=== PATIENT | female | born 1940 | race Caucasian/White ===

== ENCOUNTER 2020-08-24 06:14 | Day surgery (SDC) | payer OTHER ==
[~2020-08-24 06:14] MED LIST: ADVIL200 M1 PO; ASPIRIN EC81 MG PO; CIPRO500 MG PO; COD LIVER OIL1 EACH PO; COZAAR50 MG PO; ESTRACE42.5 GM TOP; FENOFIBRATE54 MG PO; LIPITOR40 M1 PO; LOVAZA1 GM PO; PANTOPRAZOLE SO20 MG PO; SYNTHROID25 MCG PO; TOPROL XL50 MG PO; VALSARTAN160 MG PO; VITAMIN B COMP1 EACH PO; VITAMIN D-40010 MCG PO; VITAMIN E400 UNI2 PO
[2020-08-25 04:30] LABS: BASOPHIL 0.3 % (0-2); EOSINOPHIL 0.9 % (0-7); HCT 28.2 % (37.0-47.0); HGB 8.7 g/dl (12.5-16.0); LYMPHOCYTE 16.7 % (15-48); MCH 31.4 pg (25.0-31.0); MCHC 30.9 g/dL (32.0-36.0); MCV 101.8 fL (78.0-100.0); MONOCYTE 13.2 % (0-12); NEUTROPHIL 68.7 % (41-80); NRBC 0; PLT 243 K/uL (150-400); RBC 2.77 M/uL (4.20-5.40); RDW 14.3 % (11.5-14.0); WBC 8.6 K/uL (4.0-10.5)
[2020-08-25 04:42] LABS: BUN/CREAT RATIO (CALC) 15.3 RATIO; CREATININE 0.98 mg/dL (0.51-0.95); POTASSIUM 4.3 mmol/L (3.5-5.1)
[2020-08-25] MEDS ORDERED: XARELTO10 MG PO (09:19)
[2020-08-25] MEDS ORDERED: FEOSOL325 MG PO (09:19)
[2020-08-25] MEDS ORDERED: OXYCODONE-ACET1 EAC1 PO (09:19)
[2020-08-25] MEDS ORDERED: ZOFRAN4 M1 PO (09:19)
== END 2020-08-25 13:04 | disposition home health service (06) ==
LOC: FAS 06:14 → FMS 10:44
PROVIDERS: Legal Medicine
PROC: 0SRC0L9 Replacement of Right Knee Joint with Medial Unicondylar Synthetic Substitute, Cemented, Open Approach (ICD-10-PCS; principal; 2020-08-24 08:30)
DX: M17.11 Unilateral primary osteoarthritis, right knee (principal); M21.169 Varus deformity, not elsewhere classified, unspecified knee; K21.9 Gastro-esophageal reflux disease without esophagitis; I10 Essential (primary) hypertension; E03.9 Hypothyroidism, unspecified; R11.2 Nausea with vomiting, unspecified; Z88.1 Allergy status to other antibiotic agents; Z88.2 Allergy status to sulfonamides; Z88.8 Allergy status to other drugs, medicaments and biological substances; Z98.51 Tubal ligation status; Z90.710 Acquired absence of both cervix and uterus; Z96.641 Presence of right artificial hip joint
CPT/HCPCS: 36415; 73560; 80048; 85025; 86850; 86900; 86901; 94010; 94760; 94762; 97110; 97162; 97166; 97530-GP; 97535; C1713; C1776; J0171; J0697; J1100; J1170; J1885; J2250; J2270; J2405; J2704; J2795; J3010; J7120

== ENCOUNTER 2021-08-09 06:32 | Day surgery (SDC) | payer OTHER ==
[~2021-08-09] VITALS: Ht 163 cm; Wt 72.0 kg
[~2021-08-09 06:32] MED LIST changes: +FEOSOL325 MG PO; +HYDROCHLOROTH12.5 MG PO; +IBUPROFEN800 MG PO; +LEVAQUIN500 MG PO; +OXYCODONE-ACET1 EAC1 PO; +XARELTO10 MG PO; +ZOFRAN4 M1 PO
--- NOTE | 2021-08-09 13:09 | NUR ---
PT HAD A RRTSR THIS DAY. PT WILL D/C HOME WITH NO NEEDS.
[2021-08-10 07:23] LABS: BASOPHIL 0.3 % (0-2); EOSINOPHIL 1.3 % (0-7); HCT 29.4 % (37.0-47.0); HGB 9.2 g/dl (12.5-16.0); LYMPHOCYTE 15.8 % (15-48); MCH 29.9 pg (25.0-31.0); MCHC 31.3 g/dL (32.0-36.0); MCV 95.5 fL (78.0-100.0); MONOCYTE 16.3 % (0-12); MPV 10.8 fL (6.0-9.5); NEUTROPHIL 66.1 % (41-80); NRBC 0; PLT 231 K/uL (150-400); RBC 3.08 M/uL (4.20-5.40); WBC 6.2 K/uL (4.0-10.5)
[2021-08-10 07:53] LABS: BUN/CREAT RATIO (CALC) 17.9 RATIO; CREATININE 0.78 mg/dL (0.51-0.95); POTASSIUM 4.1 mmol/L (3.5-5.1)
[2021-08-10] MEDS ORDERED: FEOSOL325 MG PO (08:45)
[2021-08-10] MEDS ORDERED: OXYCODONE-ACET1 EAC1 PO (08:45)
[2021-08-10] MEDS ORDERED: ASPIRIN EC81 MG PO ×2 (08:47→08:48)
== END 2021-08-10 12:30 | disposition home or self-care (01) ==
LOC: FAS 06:32 → FOFB 11:17 → FAS 08-10 12:30
PROVIDERS: Legal Medicine
DX: M19.011 Primary osteoarthritis, right shoulder (principal); G89.18 Other acute postprocedural pain; I10 Essential (primary) hypertension; E78.5 Hyperlipidemia, unspecified; K21.9 Gastro-esophageal reflux disease without esophagitis; Z96.651 Presence of right artificial knee joint; Z98.51 Tubal ligation status; Z96.641 Presence of right artificial hip joint; Z88.2 Allergy status to sulfonamides; Z88.8 Allergy status to other drugs, medicaments and biological substances; K44.9 Diaphragmatic hernia without obstruction or gangrene; N39.0 Urinary tract infection, site not specified
CPT/HCPCS: 36415; 73020; 80048; 85025; 86850; 86900; 86901; 94010; 97162; 97166; 97530-GP; 97535; C1713; C1776; J0171; J0697; J1100; J1170; J1885; J2250; J2270; J2405; J2704; J2795; J3010; J7120